=== PATIENT | female | born 1965 | race African-American/Black ===

== ENCOUNTER 2017-01-20 21:08 | Emergency (ER) | payer OTHER ==
[~2017-01-20] VITALS: Ht 172.7 cm; Wt 98.9 kg
[2017-01-20] MEDS ORDERED: PREDNISONE 20 M20 MG PO (21:34)
[2017-01-20 22:17] VITALS: BP 183/94
== END 2017-01-20 22:18 | disposition home or self-care (01) ==
LOC: ER 21:08
DX: S60.862A Insect bite (nonvenomous) of left wrist, initial encounter (principal); I10 Essential (primary) hypertension; Z91.14 Patient's other noncompliance with medication regimen; W57.XXXA Bitten or stung by nonvenomous insect and other nonvenomous arthropods, initial encounter; Y93.89 Activity, other specified; Y92.89 Other specified places as the place of occurrence of the external cause; Y99.8 Other external cause status